=== PATIENT | male | born 2000 | race Two or more races ===

== ENCOUNTER 2020-09-13 02:28 | Emergency (ER) | payer SELFPAY ==
[2020-09-13] MEDS ORDERED: IBUPROFEN800 MG PO (03:48)
== END 2020-09-13 03:50 | disposition home or self-care (01) ==
LOC: FER 02:28
DX: S80.01XA Contusion of right knee, initial encounter (principal); F17.210 Nicotine dependence, cigarettes, uncomplicated; W22.8XXA Striking against or struck by other objects, initial encounter; Y92.69 Other specified industrial and construction area as the place of occurrence of the external cause; Y99.0 Civilian activity done for income or pay
CPT/HCPCS: 73564